=== PATIENT | male | born 1965 | race Hispanic/Latino ===

== ENCOUNTER 2020-07-16 16:30 | Observation (INO) | payer BC ==
[~2020-07-16] VITALS: Ht 170.2 cm; Wt 89.9 kg
[2020-07-16] MEDS ORDERED: SODIUM CHLORIDE 0.9% 100 ML IV ONE (16:33)
[2020-07-16 17:21] LABS: BASOPHILS % (AUTO) 0.3 % (0.0-5.0); EOSINOPHILS % (AUTO) 0.1 % (0.0-8.0); HEMATOCRIT 44.3 % (42-54); LYMPHOCYTES % (AUTO) 9.2 % (21.0-51.0); MEAN CORPUSCULAR HGB CONC 34.8 g/dL (32.0-36.0); MEAN CORPUSCULAR VOLUME 89.1 fL (79-99); MONOCYTES % (AUTO) 5.9 % (3.0-13.0); NEUTROPHILS % (AUTO) 84.4 % (40.0-77.0); PLATELET COUNT (AUTO) 173 K/uL (130-400); RED BLOOD CELL COUNT(AUTO) 4.97 MIL/uL (4.50-6.20); RED CELL DISTRIBUTION WIDTH 11.9 % (11.0-15.5); WHITE BLOOD COUNT (AUTO) 7.2 K/uL (4.8-10.8)
[2020-07-16] MEDS ORDERED: MECLIZINE HCL 25 MG TABLET ONE (17:26)
[2020-07-16 17:30] LABS: POTASSIUM 4.8 mmol/L (3.5-5.1)
[2020-07-16 17:34] LABS: INR 1.07 (0.85-1.15); PROTHROMBIN TIME 11.4 SEC (9.6-11.6)
[2020-07-16 17:35] LABS: BILIRUBIN,TOTAL 0.5 mg/dL (0.2-1.0); TOTAL PROTEIN, SERUM 7.9 g/dL (6.0-8.3)
[2020-07-16 17:36] LABS: PARTIAL THROMBOPLASTIN TIME < 20.0 SEC (26.3-35.5)
[2020-07-16 17:43] LABS: B-TYPE NATRIURETIC PEPTIDE 18 pg/mL (0-100)
[2020-07-16] MEDS: CLINDAMYCIN 600 MG/D5% WATER 50 ML IV SCH (19:15)
[2020-07-16] MEDS ORDERED: CLINDAMYCIN 600 MG/D5% WATER 50 ML IV SCH (19:15)
[2020-07-16] MEDS ORDERED: SODIUM CHLORIDE 0.9% 1000ML 1,000 ML IV SCH (19:15)
[2020-07-16] MEDS ORDERED: ACETAMINOPHEN 325 MG TAB PO PRN ×2 (19:15)
[2020-07-16 19:52] LABS: HEMOGLOBIN A1C 5.9 % (4.0-6.0)
[2020-07-16 19:52] LABS: APPEARANCE,URINE Clear (CLEAR); BILIRUBIN,URINE Negative (NEGATIVE); COLOR,URINE Yellow (YELLOW); GLUCOSE, URINE (UA) Negative (NEGATIVE); KETONES,URINE 15 mg/dL (NEGATIVE); LEUKOCYTE ESTERASE ,URINE Negative (NEGATIVE); NITRATE,URINE Negative (NEGATIVE); OCCULT BLOOD,URINE Small (NEGATIVE); PH,URINE 6.5 (5.0-8.0); PROTEIN,URINE Negative (NEGATIVE); UROBILINOGEN,URINE 0.2 mg/dL (0.2-1.0)
[2020-07-16 19:58] LABS: AMPHET/METH SCREEN,URINE NEGATIVE (NEGATIVE); BARBITURATE SCREEN, URINE NEGATIVE (NEGATIVE); BENZODIAZEPINES SCREEN,URINE NEGATIVE (NEGATIVE); CANNABINOID SCREEN,URINE NEGATIVE (NEGATIVE); COCAINE SCREEN,URINE NEGATIVE (NEGATIVE); OPIATE SCREEN,URINE NEGATIVE (NEGATIVE); PHENCYCLIDINE SCREEN,URINE NEGATIVE (NEGATIVE)
[2020-07-16 19:59] LABS: THYROID STIMULATING HORMONE 0.48 uIU/mL (0.36-3.74)
[2020-07-16 20:14] LABS: BACTERIA,URINE Rare /HPF (None Seen); MUCUS,URINE Few LPF (None Seen); SQUAMOUS EPITHELIAL CELL,UR Rare /HPF (0-2); WBC,URINE 0-1 /HPF (0-1)
[2020-07-16] MEDS ORDERED: IOHEXOL-350 50ML VIAL IV ONE (20:34)
[2020-07-16] MEDS: FAMOTIDINE/PF 20 MG/2 ML VIAL IV SCH (21:00)
[2020-07-17 02:45] VITALS: BP 134/80
[2020-07-17] MEDS ORDERED: CAND8TAB4 PO (03:29)
[2020-07-17] MEDS: CLINDAMYCIN 600 MG/D5% WATER 50 ML IV SCH ×2 (03:29→12:21)
[2020-07-17] MEDS ORDERED: SIMV40TA59 PO (03:29)
[2020-07-17 08:00] VITALS: BP 131/68
[2020-07-17] MEDS ORDERED: GADODIAMIDE 10 MMOL/20 ML VIAL IV ONE (08:58)
[2020-07-17 12:00] VITALS: BP_SYST 131; BP_SYST 148; BP_DIAS 72; BP_DIAS 76
[2020-07-17] MEDS: FAMOTIDINE/PF 20 MG/2 ML VIAL IV SCH (12:20)
[2020-07-17] MEDS ORDERED: MECL-160 PO (15:40)
[2020-07-17] MEDS ORDERED: ONDA4TAB4 PO (15:47)
[2020-07-17 16:00] VITALS: BP 137/75
[2020-07-17] MEDS ORDERED: SIMVASTATIN 20 MG TABLET PO SCH (21:00)
[2020-07-18] MEDS ORDERED: LOSARTAN 50 MG TABLET PO SCH (09:00)
== END 2020-07-17 20:30 | disposition home or self-care (01) ==
LOC: EDH 16:30 → EDHIP 19:10 → 4BH 07-17 00:05
PROVIDERS: ADMIT Internal Medicine; ATTEND Internal Medicine
DX: R11.2 Nausea with vomiting, unspecified (principal); Z20.828 Contact with and (suspected) exposure to other viral communicable diseases; R42 Dizziness and giddiness; I10 Essential (primary) hypertension; E78.5 Hyperlipidemia, unspecified; E78.00 Pure hypercholesterolemia, unspecified; Z90.49 Acquired absence of other specified parts of digestive tract; Z79.899 Other long term (current) drug therapy
CPT/HCPCS: 36415; 70450; 70488; 70553; 71045; 80053; 80305; 81001; 82550; 83036; 83880; 84145; 84443; 84484; 85025; 85610; 85730; 87426; 93005; 96365; 96366; 96375; 99291; A9579; G0378 ×24; J3490 ×3; Q9967; U0003